=== PATIENT | female | born 1950 | race Two or more races ===

== ENCOUNTER 2024-03-07 15:43 | Emergency (ER) | payer OTHER ==
[~2024-03-07] VITALS: Ht 149.9 cm; Wt 47.6 kg
[2024-03-07] MEDS ORDERED: LIPITOR40 M1 PO (16:38)
[2024-03-07] MEDS ORDERED: KETOROLAC TROMETHAMINE 60 MG VIAL IM ONE (19:30)
[2024-03-07] MEDS ORDERED: DICLOFENAC SODI50 MG PO (21:19)
[2024-03-07] MEDS ORDERED: OxyCODONE HCL/APAP UD (PERCOCET) PO ONE (21:45)
== END 2024-03-07 21:57 ==
LOC: ER 15:45
DX: S42.292A Other displaced fracture of upper end of left humerus, initial encounter for closed fracture (principal); W19.XXXA Unspecified fall, initial encounter; Y93.02 Activity, running; Y92.89 Other specified places as the place of occurrence of the external cause; Y99.8 Other external cause status; I10 Essential (primary) hypertension
CPT/HCPCS: 29105; 73030; 73060; 73070; 96372; 99283; J1885

== ENCOUNTER 2024-03-09 13:36 | Outpatient (CLI) | payer OTHER ==
[~2024-03-09 13:36] MED LIST: DICLOFENAC SODI50 MG PO; LIPITOR40 M1 PO
== END 2024-03-09 14:00 | disposition home or self-care (01) ==
LOC: TOM 13:36
PROVIDERS: ATTEND Orthopaedic Surgery
DX: S42.232A 3-part fracture of surgical neck of left humerus, initial encounter for closed fracture (principal)